=== PATIENT | female | born 1945 | race Caucasian/White ===

== ENCOUNTER 2020-09-30 11:48 | Emergency (ER) | payer MEDICARE, OTHER ==
[~2020-09-30 11:48] MED LIST: PROTONIX40 MG PO
[2020-09-30 13:15] LABS: HEMOGLOBIN 14.3 gm/dl (12.3-15.3); RED BLOOD COUNT 4.66 M/UL (4.00-5.10); WHITE BLOOD COUNT 8.8 K/UL (4.5-11.0)
[2020-09-30 13:36] LABS: BUN/CREATININE RATIO 18 (0-10)
== END 2020-09-30 17:22 | disposition home or self-care (01) ==
LOC: ER1 11:48
PROVIDERS: Physician Assistant Medical
DX: R07.89 Other chest pain (principal); R91.8 Other nonspecific abnormal finding of lung field; I10 Essential (primary) hypertension; K21.9 Gastro-esophageal reflux disease without esophagitis; Z90.89 Acquired absence of other organs; Z88.0 Allergy status to penicillin; Z79.899 Other long term (current) drug therapy
CPT/HCPCS: 71045; 80053; 81001; 82550; 82553; 83874; 83880; 84484; 85025; 85379; 85610; 85730; 93005; 99285; Q9967